=== PATIENT | female | born 1980 | race Two or more races ===

== ENCOUNTER 2018-06-02 13:56 | Emergency (ER) | payer MEDICAID, OTHER ==
[~2018-06-02] VITALS: Ht 162.6 cm; Wt 89.4 kg
[2018-06-02 15:08] LABS: Basophils # (auto) 0 uL; Basophils % (auto) 0.1 % (0.0-2.0); Eosinophils # (auto) 0 uL; Eosinophils % (auto) 0.4 % (0.0-7.0); Hematocrit 42.1 % (36.0-46.0); Hemoglobin 14.1 g/dL (12.2-16.2); Lymphocytes # (auto) 2.1 uL; Mean Corpuscular Hemoglobin 29.5 pg (28.0-32.0); Mean Corpuscular Hgb Conc. 33.4 g/dL (32.0-36.0); Mean Corpuscular Volume 88.3 fL (80.0-100.0); Monocytes # (auto) 0.6 uL; Monocytes % (auto) 7.4 % (0.0-12.0); Neutrophils # (auto) 5.9 uL; Neutrophils % (auto) 68.1 % (37.0-80.0); Platelet Count (auto) 344 10^3/uL (140-450); Red Blood Cells 4.77 10^6/uL (4.0-5.20); Red Cell Distribution Width 13.7 % (11.8-14.3); White Blood Cell 8.7 10^3/uL (4.4-10.8)
[2018-06-02] MEDS ORDERED: diphenhdrAMINE HCL 12.5 MG/5 ML UD PO ONE (15:15)
[2018-06-02] MEDS ORDERED: LORazepam 0.5 MG TAB PO ONE (15:15)
[2018-06-02 15:22] LABS: Albumin 3.8 g/dL (3.4-5.0); BUN/Creatinine Ratio 19.3; Calcium 8.6 mg/dL (8.5-10.1)
[2018-06-02 15:57] LABS: Bilirubin, Total 0.5 mg/dL (0.2-1.0); Total Protein 7.6 g/dL (6.4-8.2)
[2018-06-02] MEDS ORDERED: POTASSIUM EFFERVESENT TAB 25 MEQ PO ONE (17:00)
[2018-06-02 17:06] VITALS: BP 114/75
== END 2018-06-02 17:17 | disposition home or self-care (01) ==
LOC: EDBD 13:56 → ER 13:56
DX: F41.9 Anxiety disorder, unspecified (principal); E87.6 Hypokalemia; E07.9 Disorder of thyroid, unspecified
CPT/HCPCS: 36415; 80053; 85025

== ENCOUNTER 2019-01-30 08:19 | Emergency (ER) | payer OTHER ==
[~2019-01-30] VITALS: Ht 162.6 cm; Wt 89.8 kg
[2019-01-30] MEDS ORDERED: ASPirin 81 mg TAB ONE (08:30)
[2019-01-30] MEDS ORDERED: ASPirin 81 mg TAB PO ONE (08:45)
[2019-01-30 08:53] VITALS: BP 137/79
[2019-01-30] MEDS ORDERED: EPINEPHrine HCL 1 MG/1 ML AMP SC ONE (09:00)
== END 2019-01-30 09:49 | disposition home or self-care (01) ==
LOC: ER 08:19
DX: T78.40XA Allergy, unspecified, initial encounter (principal); Z87.11 Personal history of peptic ulcer disease; Z86.39 Personal history of other endocrine, nutritional and metabolic disease; X58.XXXA Exposure to other specified factors, initial encounter
CPT/HCPCS: 96372; 99283; J0171

== ENCOUNTER 2025-08-18 06:59 | Day surgery (SDC) | payer OTHER ==
[~2025-08-18] VITALS: Ht 157.5 cm; Wt 97.1 kg
[~2025-08-18 06:59] MED LIST: ACET500C43 PO; CHOL1TAB28 PO; CYAN1TAB14 PO; LEVO-849 PO; LISI20TA56 PO; MAGN400T40 OR; POTA-215 PO
[2025-08-18] MEDS ORDERED: ONDANSETRON HCL 4 MG/2 ML VIAL ONE (08:21)
[2025-08-18] MEDS ORDERED: MIDAZOLAM HCL 2MG/2ML 2ml VIAL (1mg/ml) ONE (08:21)
[2025-08-18] MEDS ORDERED: GLYCOPYRROLATE 0.2 MG/ML 1ML VIAL ONE (08:21)
[2025-08-18] MEDS ORDERED: PROPOFOL 10 MG/ML 20 ML IV ONE (08:21)
[2025-08-18 08:38] VITALS: PULSE 68; RESP 19; TEMP 97.2
--- NOTE | 2025-08-18 08:43 | DVHHP2 ---
GI H&P Pre-Op Assessment Date: 08/18/25 Chief complaint: colon cancer screening HPI: per clinic note Past medical history: per clinic note Past surgical history: per clinic note Family history: per clinic note Physical exam: General: NAD, AAOX3 HEENT: PERRL, no scleral icterus, normal hearing, gums without lesions or bleeding, oropharynx clear without erythema or exudate. Neck: Supple without enlargement of the thyroid, or lymphadenopathy. Chest: Normal size and shape, no tenderness, lung peña clear to auscultation and percussion, nonlabored breathing. Heart: RRR, no murmur Abdomen: non-distended, no tenderness to palpation, +BS, no hepatosplenomegaly Extremities: no edema Neurological: CN II-XII intact, sensation intact in all extremities, 5+ strength in all extremities Skin: No rashes, No jaundice Assessment: - colon cancer screening Plan: - Colonoscopy - Risks (bleeding, infection, perforation, reaction to sedation medications and cardiopulmonary arrest) and benefit of the procedure were explained to patient. Patient agrees to undergo the procedure. REYMUNDO MARTE MD Aug 18, 2025 08:43
[2025-08-18] MEDS ORDERED: HYDROmorphone HCL 2 MG/ML VL/or syr IV PRN (08:45)
--- NOTE | 2025-08-18 08:45 | DVHDS2 ---
Physician Discharge Progress N Final Diagnosis: diverticulosis Operations or Procedures: Operations or Procedures colonoscopy Condition on Discharge: Good Disposition: Home Discharge Instructions: Diet: Regular Activity: No Restrictions, As Tolerated Medications: resume previous home medications. Follow Up Care: Discharge Statement: "Patient was advised to return to the ER or call 911 if any headaches, dizziness, shortness of breath, chest pain, abdominal pain, bleeding, fevers, or worsening of medical condition. Patient was counseled about treatment plan, medications, possible side effects, patientverbalized understanding. All questions were answered to the best of my ability. This discharge took greater then 30 minutes in planning, reviewing documentation, counseling the patient, and discussing with other team members." REYMUNDO MARTE MD Aug 18, 2025 08:45
--- NOTE | 2025-08-18 08:45 | DVHOP2 ---
Operative Report DATE OF OPERATION: 08/18/25 PROCEDURE: Colonoscopy. PREOPERATIVE INDICATION: The patient is a 45 -year-old female undergoing colonoscopy for colon cancer screening. POSTOPERATIVE DIAGNOSES: 1. Mild diverticulosis in the left colon. PROCEDURE PERFORMED BY: Tariq Britt M.D. SCOPE: Olympus videocolonoscope. ASA CLASS: 3 PREOPERATIVE MEDICATIONS: MAC with Dr Mulligan PROCEDURE IN DETAIL: After obtaining an informed consent, the patient was place d on left lateral decubitus position. She was then sedated with the above medications. A rectal examination was performed that was normal. The colonoscope was then passed through the anus into the rectosigmoid and through the descending, transverse, and ascending colon up to the cecum with visualization of the appendiceal orifice, base of the cecum and the ileocecal valve. No mass or polyp was observed. There was mild diverticulosis in the left colon. The colonoscope was then withdrawn. The patient tolerated the procedure well without difficulty. WITHDRAWAL TIME: 6 minutes QUALITY OF THE PREP: [place] Bowel Prep score: 5 COMPLICATIONS : None SPECIMENS: None DISPOSITION: D/C to home PLAN: 1. Repeat colonoscopy in 10 years for colon cancer screening. TARIQ BRITT MD Aug 18, 2025 08:45
[2025-08-18 09:10] VITALS: BP 110/71; PULSE 65; RESP 14; O2SAT 97
== END 2025-08-18 09:25 | disposition home or self-care (01) ==
LOC: GI 06:59
PROVIDERS: ATTEND Internal Medicine Gastroenterology
DX: Z12.11 Encounter for screening for malignant neoplasm of colon (principal); K57.30 Diverticulosis of large intestine without perforation or abscess without bleeding; E06.3 Autoimmune thyroiditis; E11.9 Type 2 diabetes mellitus without complications; Z79.890 Hormone replacement therapy; Z90.710 Acquired absence of both cervix and uterus; Z79.899 Other long term (current) drug therapy
CPT/HCPCS: 45378; J2250; J2405; J2704; J7030